=== PATIENT | female | born 1945 | race Two or more races ===

== ENCOUNTER 2017-07-10 14:43 | Inpatient (IN) | payer OTHER ==
[~2017-07-10] VITALS: Ht 162.6 cm; Wt 97.6 kg
[~2017-07-10 14:43] MED LIST: AMLO10TA4 PO; ATOR20TA9 PO; GEMF600T3 PO; HYDR25TA6 PO; LOSA50TA6 PO; METF500T27 PO; OMEP-110 PO
[2017-07-10] MEDS ORDERED: ONDANSETRON ODT 4 MG ONE (15:47)
[2017-07-10] MEDS ORDERED: HYDROmorphone 2 MG/ML, 1ML ONE (15:50)
[2017-07-10] MEDS ORDERED: HYDROmorphone 1 MG/ML, 1ML IM ONE (16:00)
[2017-07-10] MEDS ORDERED: ONDANSETRON ODT 4 MG PO ONE (16:00)
[2017-07-10] MEDS ORDERED: SODIUM CHLORIDE 0.9% 1,000 ML IV ONE (21:09)
[2017-07-10] MEDS ORDERED: CEFTRIAXONE PMX 1GM/50ML 50 ML IVPB ONE (21:30)
[2017-07-10] MEDS ORDERED: SODIUM CHLORIDE 0.9% 1,000ML IVBOLUS ONE (21:30)
[2017-07-10] MEDS ORDERED: SODIUM CHLORIDE FLUSH 10ML SYR IVF ONE (21:30)
[2017-07-10] MEDS ORDERED: AZITHROMYCIN 500 MG in SODIUM CHLORIDE 0.9% 250 ML IVPB ONE (21:30)
[2017-07-10 21:52] LABS: BASOPHILS # (AUTO) 0.03 x10^3/uL (0-0.1); BASOPHILS % (AUTO) 0 % (0-1); EOSINOPHILS # (AUTO) 0.09 x10^3/uL (0-0.4); EOSINOPHILS % (AUTO) 1 % (1-7); LYMPHOCYTES % (AUTO) 15 % (22-44); MD NO; MEAN CORPUSCULAR HEMOGLOBIN 30.6 pg (27.0-34.8); MEAN CORPUSCULAR HGB CONC 33.7 g/dL (32.4-35.8); MEAN CORPUSCULAR VOLUME 90.6 fL (80-100); MEAN PLATELET VOLUME 7.8 fL (7.4-10.4); MONOCYTES # (AUTO) 0.91 x10^3/uL (0.2-0.8); MONOCYTES % (AUTO) 7 % (2-9); NEUTROPHILS # (AUTO) 10.57 x10^3/uL (1.8-6.8); NEUTROPHILS % (AUTO) 77 % (42-75); PLATELET COUNT 372 x10^3/uL (130-400); RED BLOOD COUNT 4.81 x10^6/uL (3.82-5.3); RED CELL DISTRIBUTION WIDTH 13.2 % (9.6-15.2)
[2017-07-10] MEDS ORDERED: CEFTRIAXONE PMX 1GM/50ML 50 ML ONE (21:55)
[2017-07-10 22:01] LABS: INTERNATIONAL NORMALIZED RATIO 1.07 (0.93-1.1); PROTHROMBIN TIME 11.1 Seconds (9.6-11.5)
[2017-07-10 22:06] LABS: ALANINE AMINOTRANSFERASE 30 U/L (12-78); ALBUMIN 3.5 g/dL (3.4-5.0); ANION GAP 9 mmol/L (5-15); CALCIUM 9.3 mg/dL (8.5-10.1); CHLORIDE 99 mmol/L (98-107); CREATININE 1.02 mg/dL (0.55-1.02)
[2017-07-10 22:08] LABS: ALKALINE PHOSPHATASE 83 U/L (45-117); BILIRUBIN,TOTAL 0.3 mg/dL (0.2-1.0); TOTAL PROTEIN 8.7 g/dL (6.4-8.2)
[2017-07-10] MEDS ORDERED: SODIUM CHLORIDE FLUSH 10ML SYR IVF PRN (22:30)
[2017-07-11] MEDS ORDERED: OXYcodone/APAP 5/325MG TABLET PO PRN
[2017-07-11] MEDS ORDERED: BISACODYL 10 MG SUPP PR PRN
[2017-07-11] MEDS ORDERED: ACETAMINOPHEN 325 MG TABLET PO PRN
[2017-07-11] MEDS ORDERED: hydrALAzine 20 MG/ML, 1ML IVPush PRN
[2017-07-11] MEDS ORDERED: DOCUSATE 100 MG CAPSULE PO PRN
[2017-07-11] MEDS ORDERED: ENALAPRILAT 1.25 MG/ML, 2ML IVPush PRN
[2017-07-11] MEDS ORDERED: POLYETHYLENE GLYCOL 17 GM PACKET PO PRN
[2017-07-11] MEDS ORDERED: morphine SULFATE 10 MG/ML, 1ML IVPush PRN
[2017-07-11] MEDS ORDERED: ONDANSETRON 2MG/ML, 2ML IVPush PRN
[2017-07-11 00:15] VITALS: BP 119/73
[2017-07-11 00:37] LABS: MICROSCOPIC NOT IND
[2017-07-11] MEDS: HEPARIN 5,000 UNITS/ML, 1ML SQ SCH ×4 (00:50→23:20)
[2017-07-11 00:55] LABS: CULTURE INDICATED? NO
[2017-07-11 01:35] LABS: RAPID INFLUENZA A Negative (Negative); RAPID INFLUENZA B Negative (Negative)
[2017-07-11 02:04] LABS: FREE T4 (FREE THYROXINE) 1.26 ng/dL (0.76-1.46); TROPONIN I < 0.015 ng/mL (0.000-0.045)
[2017-07-11 02:10] LABS: THYROID STIMULATING HORMONE 0.652 mIU/L (0.358-3.740)
[2017-07-11 02:13] LABS: HEMOGLOBIN A1C 6.7 % (4.2-6.3)
[2017-07-11 04:02] VITALS: BP 119/73
[2017-07-11 06:01] LABS: BASOPHILS # (AUTO) 0.19 x10^3/uL (0-0.1); BASOPHILS % (AUTO) 2 % (0-1); EOSINOPHILS # (AUTO) 0.08 x10^3/uL (0-0.4); EOSINOPHILS % (AUTO) 1 % (1-7); LYMPHOCYTES # (AUTO) 1.71 x10^3/uL (1-3.4); LYMPHOCYTES % (AUTO) 18 % (22-44); MD NO; MEAN CORPUSCULAR HEMOGLOBIN 30.7 pg (27.0-34.8); MEAN CORPUSCULAR HGB CONC 33.4 g/dL (32.4-35.8); MEAN CORPUSCULAR VOLUME 91.8 fL (80-100); MEAN PLATELET VOLUME 7.9 fL (7.4-10.4); MONOCYTES # (AUTO) 0.76 x10^3/uL (0.2-0.8); MONOCYTES % (AUTO) 8 % (2-9); NEUTROPHILS # (AUTO) 6.72 x10^3/uL (1.8-6.8); NEUTROPHILS % (AUTO) 71 % (42-75); PLATELET COUNT 298 x10^3/uL (130-400); RED BLOOD COUNT 4.12 x10^6/uL (3.82-5.3); RED CELL DISTRIBUTION WIDTH 13.2 % (9.6-15.2)
[2017-07-11 06:04] LABS: ALANINE AMINOTRANSFERASE 21 U/L (12-78); ALBUMIN 2.7 g/dL (3.4-5.0); ANION GAP 7 mmol/L (5-15); CALCIUM 8.5 mg/dL (8.5-10.1); CHLORIDE 107 mmol/L (98-107); CREATININE 0.58 mg/dL (0.55-1.02)
[2017-07-11 06:09] LABS: ALKALINE PHOSPHATASE 65 U/L (45-117); BILIRUBIN,TOTAL 0.3 mg/dL (0.2-1.0); TOTAL PROTEIN 6.9 g/dL (6.4-8.2); TROPONIN I < 0.015 ng/mL (0.000-0.045)
[2017-07-11 06:12] LABS: CHOL/HDL RATIO 4.2; LDL/HDL RATIO 2.5 (0.5-3.0)
[2017-07-11 08:00] VITALS: BP 126/78
[2017-07-11] MEDS: ATORVASTATIN 20 MG TABLET PO SCH (08:10)
[2017-07-11] MEDS: AMLODIPINE 5 MG TABLET PO SCH (08:10)
[2017-07-11] MEDS: HYDROCHLOROTHIAZIDE 25 MG TABLET PO SCH (08:10)
[2017-07-11] MEDS: GEMFIBROZIL 600 MG TABLET PO SCH ×2 (08:10→19:52)
[2017-07-11] MEDS: metFORMIN XR 500 MG TAB.ER.24H PO SCH (08:11)
[2017-07-11] MEDS: OMEPRAZOLE 20 MG CAPSULE.DR PO SCH (08:11)
[2017-07-11] MEDS: LOSARTAN 50MG TABLET PO SCH ×2 (08:11→19:52)
[2017-07-11 12:19] LABS: CULTURE INDICATED? NO; MICROSCOPIC NOT IND
[2017-07-11 13:42] VITALS: BP 100/64
[2017-07-11 18:54] VITALS: BP 111/70
[2017-07-11] MEDS: ARTIFICIAL TEARS OPHTH SOLN 15ML EACHEYE PRN (19:51)
[2017-07-11] MEDS: CEFTRIAXONE 2,000 MG in DEXTROSE 5% 50 ML IV SCH (21:59)
[2017-07-11] MEDS ORDERED: CEFTRIAXONE PMX 2GM/50ML 50 ML IV SCH (22:00)
[2017-07-11] MEDS ORDERED: DOXYCYCLINE 100 MG in DEXTROSE 5% 250 ML IV SCH (23:00)
[2017-07-12 00:35] VITALS: BP 128/76
[2017-07-12 05:53] LABS: BASOPHILS # (AUTO) 0.04 x10^3/uL (0-0.1); BASOPHILS % (AUTO) 1 % (0-1); EOSINOPHILS # (AUTO) 0.27 x10^3/uL (0-0.4); EOSINOPHILS % (AUTO) 4 % (1-7); LYMPHOCYTES # (AUTO) 1.72 x10^3/uL (1-3.4); LYMPHOCYTES % (AUTO) 23 % (22-44); MD NO; MEAN CORPUSCULAR HEMOGLOBIN 30.6 pg (27.0-34.8); MEAN CORPUSCULAR HGB CONC 33.4 g/dL (32.4-35.8); MEAN CORPUSCULAR VOLUME 91.7 fL (80-100); MONOCYTES # (AUTO) 0.89 x10^3/uL (0.2-0.8); MONOCYTES % (AUTO) 12 % (2-9); NEUTROPHILS # (AUTO) 4.72 x10^3/uL (1.8-6.8); NEUTROPHILS % (AUTO) 62 % (42-75); PLATELET COUNT 337 x10^3/uL (130-400); RED CELL DISTRIBUTION WIDTH 13.3 % (9.6-15.2)
[2017-07-12 06:01] LABS: ALANINE AMINOTRANSFERASE 17 U/L (12-78); ALBUMIN 2.7 g/dL (3.4-5.0); ANION GAP 7 mmol/L (5-15); CALCIUM 8.8 mg/dL (8.5-10.1); CHLORIDE 107 mmol/L (98-107)
[2017-07-12 06:04] LABS: ALKALINE PHOSPHATASE 64 U/L (45-117); BILIRUBIN,TOTAL 0.3 mg/dL (0.2-1.0); CREATININE 0.57 mg/dL (0.55-1.02); TOTAL PROTEIN 7.1 g/dL (6.4-8.2)
[2017-07-12 07:44] VITALS: BP 116/70
[2017-07-12] MEDS: HYDROCHLOROTHIAZIDE 25 MG TABLET PO SCH (07:45)
[2017-07-12] MEDS: metFORMIN XR 500 MG TAB.ER.24H PO SCH (07:45)
[2017-07-12] MEDS: OMEPRAZOLE 20 MG CAPSULE.DR PO SCH (07:45)
[2017-07-12] MEDS: GEMFIBROZIL 600 MG TABLET PO SCH ×2 (07:45→23:03)
[2017-07-12] MEDS: AMLODIPINE 5 MG TABLET PO SCH (07:46)
[2017-07-12] MEDS: LOSARTAN 50MG TABLET PO SCH ×2 (07:46→23:03)
[2017-07-12] MEDS: HEPARIN 5,000 UNITS/ML, 1ML SQ SCH ×3 (07:46→23:04)
[2017-07-12] MEDS: ATORVASTATIN 20 MG TABLET PO SCH (07:46)
[2017-07-12] MEDS: ARTIFICIAL TEARS OPHTH SOLN 15ML EACHEYE PRN ×2 (07:56→18:34)
[2017-07-12] MEDS: DOXYCYCLINE 100MG TABLET PO SCH ×2 (10:49→23:03)
[2017-07-12 13:53] VITALS: BP 114/71
[2017-07-12 13:59] VITALS: BP 139/46
[2017-07-12] MEDS: CEFTRIAXONE 2,000 MG in DEXTROSE 5% 50 ML IV SCH (23:03)
[2017-07-12 23:05] VITALS: BP 122/79
[2017-07-13 02:53] VITALS: BP 125/79
[2017-07-13 07:30] VITALS: BP 110/75
[2017-07-13] MEDS: HEPARIN 5,000 UNITS/ML, 1ML SQ SCH (09:31)
[2017-07-13] MEDS: GEMFIBROZIL 600 MG TABLET PO SCH (09:32)
[2017-07-13] MEDS: DOXYCYCLINE 100MG TABLET PO SCH (09:32)
[2017-07-13] MEDS: OMEPRAZOLE 20 MG CAPSULE.DR PO SCH (09:32)
[2017-07-13] MEDS: AMLODIPINE 5 MG TABLET PO SCH (09:32)
[2017-07-13] MEDS: ATORVASTATIN 20 MG TABLET PO SCH (09:32)
[2017-07-13] MEDS: metFORMIN XR 500 MG TAB.ER.24H PO SCH (09:32)
[2017-07-13] MEDS: HYDROCHLOROTHIAZIDE 25 MG TABLET PO SCH (09:32)
[2017-07-13] MEDS: LOSARTAN 50MG TABLET PO SCH (09:32)
[2017-07-13] MEDS ORDERED: CEFD300C37 PO (13:52)
[2017-07-13] MEDS ORDERED: DOXY100T10 PO (13:52)
[2017-07-13] MEDS ORDERED: ACET325T14 PO (13:53)
[2017-07-13 14:09] VITALS: BP 107/66
== END 2017-07-13 16:10 | disposition home or self-care (01) | DRG 562 ==
LOC: ED 16:35 → 3NE 23:59
PROVIDERS: ADMIT Internal Medicine; ATTEND Internal Medicine
DX: S42.292A Other displaced fracture of upper end of left humerus, initial encounter for closed fracture (principal); J96.01 Acute respiratory failure with hypoxia; J15.9 Unspecified bacterial pneumonia; E87.2 Acidosis; W01.0XXA Fall on same level from slipping, tripping and stumbling without subsequent striking against object, initial encounter; E11.9 Type 2 diabetes mellitus without complications; E78.5 Hyperlipidemia, unspecified; I10 Essential (primary) hypertension; K21.9 Gastro-esophageal reflux disease without esophagitis; Y93.89 Activity, other specified; Y92.89 Other specified places as the place of occurrence of the external cause; Y99.8 Other external cause status
CPT/HCPCS: 36415; 71045; 80053; 80061; 81003; 83036; 83605; 83735; 84145; 84439; 84443; 84484; 85025; 85610; 85730; 87040; 87070; 87205; 87400; 93005; 93306; J0456; J0696; J1170; J1644; J7060; Q0162; J7030; J7050

== ENCOUNTER 2020-07-25 05:37 | Inpatient (IN) | payer OTHER ==
[2020-07-22 12:24] LABS: BASOPHILS % (AUTO) 1 % (0-1); EOSINOPHILS % (AUTO) 2 % (1-7); LYMPHOCYTES % (AUTO) 31 % (22-44); MD NO; MEAN CORPUSCULAR HEMOGLOBIN 30.3 pg (27.0-34.8); MEAN CORPUSCULAR HGB CONC 33.7 g/dL (32.4-35.8); MEAN PLATELET VOLUME 8.5 fL (7.4-10.4); MONOCYTES % (AUTO) 10 % (2-9); NEUTROPHILS % (AUTO) 56 % (42-75); PLATELET COUNT 280 x10^3/uL (130-400); RED BLOOD COUNT 4.72 x10^6/uL (3.82-5.3); RED CELL DISTRIBUTION WIDTH 14.1 % (9.6-15.2)
[2020-07-22 12:27] LABS: INTERNATIONAL NORMALIZED RATIO 1.04 (0.93-1.1)
[2020-07-22 12:32] LABS: CHLORIDE 107 mmol/L (98-107)
[2020-07-22 12:49] LABS: ALANINE AMINOTRANSFERASE 26 U/L (12-78); ALBUMIN 3.9 g/dL (3.4-5.0); ALKALINE PHOSPHATASE 73 U/L (45-117); ANION GAP 6 mmol/L (5-15); BILIRUBIN,TOTAL 0.5 mg/dL (0.2-1.0); CREATININE 0.83 mg/dL (0.55-1.02); TOTAL PROTEIN 8.1 g/dL (6.4-8.2)
[~2020-07-25] VITALS: Ht 162.6 cm; Wt 90.2 kg
[~2020-07-25 05:37] MED LIST changes: +ACET325T14 PO; +ASPI81TA45 PO; +ATOR20TA37 PO; -ATOR20TA9 PO; +CEFD300C37 PO; +DOXY100T23 PO; +GEMF-31 PO; -GEMF600T3 PO; +LOSA50TA14 PO; -LOSA50TA6 PO; +OMEG-76 PO
[2020-07-25] MEDS ORDERED: CHLORHEXIDINE 15 ML UDC MM ONE (06:30)
[2020-07-25] MEDS ORDERED: LACTATED RINGERS 1,000 ML IV SCH (06:30)
[2020-07-25 06:32] VITALS: BP 116/78
[2020-07-25] MEDS ORDERED: CEFOTETAN PMX 2GM/50ML 50 ML IV ONE (07:00)
[2020-07-25] MEDS ORDERED: PROPOFOL 10 MG/ML, 20ML ONE (07:15)
[2020-07-25] MEDS ORDERED: FENTANYL PF 250 MCG/5ML ONE (07:15)
[2020-07-25] MEDS ORDERED: ROCURONIUM 10MG/ML,5ML ONE ×2 (07:15→09:23)
[2020-07-25] MEDS ORDERED: LIDOCAINE-MPF 2% ,5ML ONE (07:16)
[2020-07-25] MEDS ORDERED: EPHEDRINE 50 MG/ML, 1ML ONE (07:22)
[2020-07-25] MEDS ORDERED: CALCIUM CHLORIDE 10%, 10ML SYR ONE (07:38)
[2020-07-25] MEDS ORDERED: DEXAMETHASONE 4 MG/ML, 5ML ONE ×2 (08:35)
[2020-07-25] MEDS ORDERED: ALBUMIN HUMAN 5% 500 ML ONE ×2 (09:26→10:32)
[2020-07-25] MEDS ORDERED: PHENYLEPHRINE 10 MG/ML ONE ×2 (11:08)
[2020-07-25] MEDS ORDERED: ACETAMINOPHEN 325 MG TABLET PO PRN (13:00)
[2020-07-25] MEDS ORDERED: ONDANSETRON 2MG/ML, 2ML IVPush PRN ×2 (13:00→14:00)
[2020-07-25] MEDS ORDERED: EPHEDRINE 50 MG/ML, 1ML IVPush PRN (13:00)
[2020-07-25] MEDS ORDERED: FENTANYL PF 100 MCG/2ML ONE ×3 (13:07→14:16)
[2020-07-25] MEDS ORDERED: SUGAMMADEX 200 MG/2 ML IVPush ONE (13:08)
[2020-07-25] MEDS ORDERED: ONDANSETRON 2MG/ML, 2ML ONE (13:11)
[2020-07-25] MEDS ORDERED: HYDROmorphone 1 MG/ML, 1ML INJ ONE ×2 (14:00→14:16)
[2020-07-25] MEDS: FENTANYL PF 100 MCG/2ML IV PRN ×2 (14:01→14:06)
[2020-07-25] MEDS: HYDROmorphone 1 MG/ML, 1ML INJ IVPush PRN ×3 (14:11→14:29)
[2020-07-25] MEDS ORDERED: PROCHLORPERAZINE 5 MG/ML, 2ML IVPush PRN (14:30)
[2020-07-25] MEDS ORDERED: LABETALOL 5MG/ML, 20ML IVPush PRN (14:30)
[2020-07-25] MEDS ORDERED: DIPHENHYDRAMINE 50 MG/ML, 1ML IVPush PRN (14:30)
[2020-07-25 16:19] LABS: MEAN CORPUSCULAR HEMOGLOBIN 30.4 pg (27.0-34.8); MEAN CORPUSCULAR HGB CONC 33.2 g/dL (32.4-35.8); MEAN PLATELET VOLUME 8.4 fL (7.4-10.4); PLATELET COUNT 160 x10^3/uL (130-400); RED BLOOD COUNT 4.55 x10^6/uL (3.82-5.3); RED CELL DISTRIBUTION WIDTH 14.7 % (9.6-15.2)
[2020-07-25 17:16] LABS: MD YES
[2020-07-25 17:19] LABS: BAND#(MANUAL) 5.36 x10^3/uL; BANDS%(MANUAL) 38 % (0-7); LYMPH#(MANUAL) 0.28 x10^3/uL (1-3.4); LYMPHS% (MANUAL) 2 % (22-44); MONOS#(MANUAL) 0.85 x10^3/uL (0.3-2.7); MONOS% (MANUAL) 6 % (2-9); SEG#(MANUAL) 7.61 x10^3/uL (1.8-6.8); SEGS% (MANUAL) 54 % (42-75)
[2020-07-25 17:20] LABS: <RBC MORPHOLOGY> NORMAL
[2020-07-25 17:21] LABS: <PLATELET ESTIMATE> ADEQUATE; <PLT MORPHOLOGY> NORMAL PLT MORPH
[2020-07-25] MEDS: INSULIN REGULAR 100 UNITS/ML, 3ML VIAL SQ-INSULIN SCH ×2 (17:28→21:00)
[2020-07-25] MEDS: POTASSIUM CHLORIDE 20 MEQ in SODIUM CHLORIDE 0.45% 1,000 ML IV SCH (17:51)
[2020-07-26] MEDS: POTASSIUM CHLORIDE 20 MEQ in SODIUM CHLORIDE 0.45% 1,000 ML IV SCH ×3 (02:06→18:33)
[2020-07-26] MEDS: INSULIN REGULAR 100 UNITS/ML, 3ML VIAL SQ-INSULIN SCH ×4 (03:00→20:17)
[2020-07-26 04:30] LABS: BASOPHILS % (AUTO) 0 % (0-1); EOSINOPHILS % (AUTO) 0 % (1-7); LYMPHOCYTES % (AUTO) 6 % (22-44); MEAN CORPUSCULAR HEMOGLOBIN 30.4 pg (27.0-34.8); MEAN CORPUSCULAR HGB CONC 33.6 g/dL (32.4-35.8); MEAN PLATELET VOLUME 8.7 fL (7.4-10.4); MONOCYTES % (AUTO) 7 % (2-9); NEUTROPHILS % (AUTO) 87 % (42-75); PLATELET COUNT 146 x10^3/uL (130-400); RED BLOOD COUNT 4.22 x10^6/uL (3.82-5.3); RED CELL DISTRIBUTION WIDTH 14.4 % (9.6-15.2)
[2020-07-26 04:33] LABS: MD NO
[2020-07-26 04:42] LABS: ANION GAP 2 mmol/L (5-15); CALCIUM 8.1 mg/dL (8.5-10.1); CHLORIDE 112 mmol/L (98-107)
[2020-07-26] MEDS ORDERED: MAGNESIUM SULFATE/D5W 100 ML IVPB ONE (08:00)
[2020-07-26] MEDS ORDERED: SODIUM CHLORIDE 0.9% 1,000 ML IV ONE (08:00)
[2020-07-26 09:38] VITALS: BP 111/37
[2020-07-26 12:45] VITALS: BP 98/47
[2020-07-26 16:45] VITALS: BP 102/52
[2020-07-26 18:28] VITALS: BP 105/67
[2020-07-27 00:18] VITALS: BP 110/70
[2020-07-27] MEDS: INSULIN REGULAR 100 UNITS/ML, 3ML VIAL SQ-INSULIN SCH ×4 (03:15→21:00)
[2020-07-27] MEDS ORDERED: PROCHLORPERAZINE 5 MG/ML, 2ML IVPush PRN (03:30)
[2020-07-27] MEDS ORDERED: LABETALOL 5MG/ML, 20ML IVPush PRN (03:30)
[2020-07-27] MEDS: POTASSIUM CHLORIDE 20 MEQ in SODIUM CHLORIDE 0.45% 1,000 ML IV SCH ×3 (03:31→21:03)
[2020-07-27 04:56] LABS: BASOPHILS % (AUTO) 0 % (0-1); EOSINOPHILS % (AUTO) 0 % (1-7); LYMPHOCYTES % (AUTO) 9 % (22-44); MEAN CORPUSCULAR HEMOGLOBIN 30.9 pg (27.0-34.8); MEAN CORPUSCULAR HGB CONC 33.9 g/dL (32.4-35.8); MEAN PLATELET VOLUME 8.6 fL (7.4-10.4); MONOCYTES % (AUTO) 7 % (2-9); NEUTROPHILS % (AUTO) 84 % (42-75); PLATELET COUNT 112 x10^3/uL (130-400); RED BLOOD COUNT 3.37 x10^6/uL (3.82-5.3); RED CELL DISTRIBUTION WIDTH 14.7 % (9.6-15.2)
[2020-07-27 05:02] LABS: MD NO
[2020-07-27 05:04] LABS: ANION GAP 6 mmol/L (5-15); CHLORIDE 111 mmol/L (98-107); CREATININE 0.51 mg/dL (0.55-1.02)
[2020-07-27 06:07] VITALS: BP 112/71
[2020-07-27] MEDS ORDERED: KETOROLAC 30 MG/1 ML IVPush PRN (13:00)
[2020-07-27] MEDS ORDERED: GLUCAGON 1 MG IM PRN (17:00)
[2020-07-27] MEDS ORDERED: DEXTROSE 50%, 50ML SYRINGE IVPush PRN (17:00)
[2020-07-27] MEDS ORDERED: DEXTROSE 4 GM TAB.CHEW PO PRN (17:00)
[2020-07-27 19:59] VITALS: BP 108/74
[2020-07-27] MEDS: FAMOTIDINE 20 MG/2 ML IVPush SCH (21:00)
[2020-07-27] MEDS: SODIUM CHLORIDE FLUSH 10ML SYR IVF SCH (21:03)
[2020-07-28 01:21] VITALS: BP 110/51
[2020-07-28] MEDS: INSULIN REGULAR 100 UNITS/ML, 3ML VIAL SQ-INSULIN SCH ×4 (03:00→20:20)
[2020-07-28] MEDS: POTASSIUM CHLORIDE 20 MEQ in SODIUM CHLORIDE 0.45% 1,000 ML IV SCH ×3 (04:42→23:01)
[2020-07-28 05:15] LABS: BASOPHILS % (AUTO) 0 % (0-1); EOSINOPHILS % (AUTO) 1 % (1-7); LYMPHOCYTES % (AUTO) 9 % (22-44); MEAN CORPUSCULAR HEMOGLOBIN 30.6 pg (27.0-34.8); MEAN CORPUSCULAR HGB CONC 33.3 g/dL (32.4-35.8); MEAN PLATELET VOLUME 8.6 fL (7.4-10.4); MONOCYTES % (AUTO) 6 % (2-9); NEUTROPHILS % (AUTO) 84 % (42-75); PLATELET COUNT 118 x10^3/uL (130-400); RED BLOOD COUNT 3.22 x10^6/uL (3.82-5.3); RED CELL DISTRIBUTION WIDTH 14.5 % (9.6-15.2)
[2020-07-28 05:18] LABS: MD NO
[2020-07-28 05:32] LABS: ANION GAP 6 mmol/L (5-15); CHLORIDE 110 mmol/L (98-107)
[2020-07-28 05:47] LABS: CREATININE 0.47 mg/dL (0.55-1.02)
[2020-07-28 08:00] VITALS: BP 105/59
[2020-07-28] MEDS: SODIUM CHLORIDE FLUSH 10ML SYR IVF SCH ×2 (10:13→20:20)
[2020-07-28 19:43] VITALS: BP 108/63
[2020-07-28] MEDS: FAMOTIDINE 20 MG/2 ML IVPush SCH (20:20)
[2020-07-29 00:10] VITALS: BP 111/64
[2020-07-29] MEDS: INSULIN REGULAR 100 UNITS/ML, 3ML VIAL SQ-INSULIN SCH ×4 (03:27→21:18)
[2020-07-29] MEDS: POTASSIUM CHLORIDE 20 MEQ in SODIUM CHLORIDE 0.45% 1,000 ML IV SCH ×2 (06:29→16:43)
[2020-07-29 06:55] VITALS: BP 126/77
[2020-07-29 07:37] LABS: BASOPHILS % (AUTO) 0 % (0-1); EOSINOPHILS % (AUTO) 1 % (1-7); LYMPHOCYTES % (AUTO) 6 % (22-44); MEAN CORPUSCULAR HEMOGLOBIN 30.6 pg (27.0-34.8); MEAN CORPUSCULAR HGB CONC 33.5 g/dL (32.4-35.8); MEAN PLATELET VOLUME 7.6 fL (7.4-10.4); MONOCYTES % (AUTO) 9 % (2-9); NEUTROPHILS % (AUTO) 83 % (42-75); PLATELET COUNT 171 x10^3/uL (130-400); RED BLOOD COUNT 3.31 x10^6/uL (3.82-5.3); RED CELL DISTRIBUTION WIDTH 14.6 % (9.6-15.2)
[2020-07-29 07:40] LABS: MD NO
[2020-07-29] MEDS: SODIUM CHLORIDE FLUSH 10ML SYR IVF SCH ×2 (09:45→21:18)
[2020-07-29 12:46] VITALS: BP 125/75
[2020-07-29 18:20] VITALS: BP 124/56
[2020-07-29] MEDS: FAMOTIDINE 20 MG/2 ML IVPush SCH (21:17)
[2020-07-30 00:18] VITALS: BP 135/67
[2020-07-30] MEDS: POTASSIUM CHLORIDE 20 MEQ in SODIUM CHLORIDE 0.45% 1,000 ML IV SCH ×3 (00:39→16:33)
[2020-07-30] MEDS: INSULIN REGULAR 100 UNITS/ML, 3ML VIAL SQ-INSULIN SCH ×4 (02:47→20:27)
[2020-07-30 05:22] LABS: BASOPHILS % (AUTO) 0 % (0-1); EOSINOPHILS % (AUTO) 2 % (1-7); LYMPHOCYTES % (AUTO) 8 % (22-44); MEAN CORPUSCULAR HEMOGLOBIN 31.1 pg (27.0-34.8); MEAN CORPUSCULAR HGB CONC 34.1 g/dL (32.4-35.8); MEAN PLATELET VOLUME 7.3 fL (7.4-10.4); MONOCYTES % (AUTO) 11 % (2-9); NEUTROPHILS % (AUTO) 80 % (42-75); PLATELET COUNT 183 x10^3/uL (130-400); RED BLOOD COUNT 3.27 x10^6/uL (3.82-5.3); RED CELL DISTRIBUTION WIDTH 14.2 % (9.6-15.2)
[2020-07-30 05:28] LABS: MD NO
[2020-07-30 05:31] LABS: ANION GAP 10 mmol/L (5-15); CALCIUM 7.9 mg/dL (8.5-10.1); CHLORIDE 109 mmol/L (98-107); CREATININE 0.39 mg/dL (0.55-1.02)
[2020-07-30 08:17] VITALS: BP 100/67
[2020-07-30] MEDS: SODIUM CHLORIDE FLUSH 10ML SYR IVF SCH ×2 (08:43→20:24)
[2020-07-30 13:29] VITALS: BP 127/78
[2020-07-30] MEDS: ACETAMINOPHEN 325 MG TABLET PO PRN ×2 (14:34→20:23)
[2020-07-30 18:35] VITALS: BP 128/74
[2020-07-30] MEDS: FAMOTIDINE 20 MG/2 ML IVPush SCH (20:23)
[2020-07-31 00:26] VITALS: BP 130/78
[2020-07-31] MEDS: POTASSIUM CHLORIDE 20 MEQ in SODIUM CHLORIDE 0.45% 1,000 ML IV SCH ×2 (00:34→09:55)
[2020-07-31] MEDS: ACETAMINOPHEN 325 MG TABLET PO PRN ×2 (05:26→18:21)
[2020-07-31] MEDS: INSULIN REGULAR 100 UNITS/ML, 3ML VIAL SQ-INSULIN SCH ×4 (07:00→20:07)
[2020-07-31 08:38] VITALS: BP 115/72
[2020-07-31] MEDS: SODIUM CHLORIDE FLUSH 10ML SYR IVF SCH ×2 (09:55→20:06)
[2020-07-31 14:31] VITALS: BP 138/79
[2020-07-31 18:44] VITALS: BP 129/77
[2020-07-31] MEDS: FAMOTIDINE 20 MG/2 ML IVPush SCH (20:06)
[2020-08-01] MEDS: ACETAMINOPHEN 325 MG TABLET PO PRN (01:12)
[2020-08-01 01:47] VITALS: BP 113/73
[2020-08-01] MEDS: OXYcodone/APAP 5/325MG TABLET PO PRN (03:00)
[2020-08-01 04:49] LABS: BASOPHILS % (AUTO) 0 % (0-1); EOSINOPHILS % (AUTO) 1 % (1-7); LYMPHOCYTES % (AUTO) 9 % (22-44); MEAN CORPUSCULAR HEMOGLOBIN 30.4 pg (27.0-34.8); MEAN CORPUSCULAR HGB CONC 33.8 g/dL (32.4-35.8); MEAN PLATELET VOLUME 7.5 fL (7.4-10.4); MONOCYTES % (AUTO) 10 % (2-9); NEUTROPHILS % (AUTO) 80 % (42-75); PLATELET COUNT 217 x10^3/uL (130-400); RED BLOOD COUNT 3.37 x10^6/uL (3.82-5.3); RED CELL DISTRIBUTION WIDTH 14.5 % (9.6-15.2)
[2020-08-01 04:57] LABS: MD NO
[2020-08-01 04:58] LABS: ANION GAP 6 mmol/L (5-15); CALCIUM 8.2 mg/dL (8.5-10.1); CHLORIDE 110 mmol/L (98-107); CREATININE 0.41 mg/dL (0.55-1.02)
[2020-08-01] MEDS ORDERED: POTASSIUM CHLORIDE 20 MEQ TAB.ER.PRT PO ONE ×2 (06:00)
[2020-08-01 06:37] VITALS: BP 120/71
[2020-08-01] MEDS: INSULIN REGULAR 100 UNITS/ML, 3ML VIAL SQ-INSULIN SCH ×4 (07:45→20:06)
[2020-08-01] MEDS: SODIUM CHLORIDE FLUSH 10ML SYR IVF SCH ×2 (08:17→20:06)
[2020-08-01 12:05] VITALS: BP 111/74
[2020-08-01 19:44] VITALS: BP 122/75
[2020-08-01] MEDS ORDERED: FAMOTIDINE 40 MG TABLET ONE (20:00)
[2020-08-01] MEDS: FAMOTIDINE 20 MG TABLET PO SCH (20:06)
[2020-08-02 00:08] VITALS: BP 117/68
[2020-08-02] MEDS: OXYcodone/APAP 5/325MG TABLET PO PRN (04:09)
[2020-08-02 05:27] LABS: CALCIUM 8.3 mg/dL (8.5-10.1); CHLORIDE 110 mmol/L (98-107)
[2020-08-02 05:30] LABS: ANION GAP 8 mmol/L (5-15); CREATININE 0.45 mg/dL (0.55-1.02)
[2020-08-02 06:50] VITALS: BP 105/68
[2020-08-02] MEDS: INSULIN REGULAR 100 UNITS/ML, 3ML VIAL SQ-INSULIN SCH ×4 (07:00→21:00)
[2020-08-02] MEDS: ACETAMINOPHEN 325 MG TABLET PO PRN (09:12)
[2020-08-02] MEDS: SODIUM CHLORIDE FLUSH 10ML SYR IVF SCH ×2 (09:15→21:03)
[2020-08-02] MEDS: KETOROLAC 30 MG/1 ML IVPush PRN ×2 (11:13→17:34)
[2020-08-02 12:33] VITALS: BP 104/44
[2020-08-02 18:35] VITALS: BP 122/63
[2020-08-02] MEDS ORDERED: FAMOTIDINE 40 MG TABLET ONE (20:58)
[2020-08-02] MEDS: FAMOTIDINE 20 MG TABLET PO SCH (21:00)
[2020-08-03 00:23] VITALS: BP 129/75
[2020-08-03 07:03] VITALS: BP 115/72
[2020-08-03] MEDS: INSULIN REGULAR 100 UNITS/ML, 3ML VIAL SQ-INSULIN SCH ×3 (07:22→16:00)
[2020-08-03] MEDS: SODIUM CHLORIDE FLUSH 10ML SYR IVF SCH (10:04)
[2020-08-03] MEDS: KETOROLAC 30 MG/1 ML IVPush PRN (10:04)
[2020-08-03 12:42] VITALS: BP 101/66
== END 2020-08-03 18:03 | disposition home or self-care (01) | DRG 740 ==
LOC: ORIP 05:37 → CSU 15:13 → CCU 23:27 → 4NW 07-26 12:36
PROVIDERS: ADMIT Obstetrics & Gynecology; ATTEND Obstetrics & Gynecology
PROC: 0DTJ0ZZ Resection of Appendix, Open Approach (ICD-10-PCS; 2020-07-25)
PROC: 0DBU0ZZ Excision of Omentum, Open Approach (ICD-10-PCS; 2020-07-25)
PROC: 0UT20ZZ Resection of Bilateral Ovaries, Open Approach (ICD-10-PCS; 2020-07-25)
PROC: 0UT70ZZ Resection of Bilateral Fallopian Tubes, Open Approach (ICD-10-PCS; 2020-07-25)
PROC: 30233N1 Transfusion of Nonautologous Red Blood Cells into Peripheral Vein, Percutaneous Approach (ICD-10-PCS; 2020-07-25)
PROC: 0UT90ZZ Resection of Uterus, Open Approach (ICD-10-PCS; principal; 2020-07-25 07:30)
DX: C54.1 Malignant neoplasm of endometrium (principal); C78.6 Secondary malignant neoplasm of retroperitoneum and peritoneum; N17.9 Acute kidney failure, unspecified; D62 Acute posthemorrhagic anemia; I10 Essential (primary) hypertension; N95.0 Postmenopausal bleeding; E11.9 Type 2 diabetes mellitus without complications; D72.829 Elevated white blood cell count, unspecified; E87.6 Hypokalemia; D25.9 Leiomyoma of uterus, unspecified; K66.0 Peritoneal adhesions (postprocedural) (postinfection); Z79.84 Long term (current) use of oral hypoglycemic drugs; Z79.899 Other long term (current) drug therapy
CPT/HCPCS: 36415; J3490; 71046; 80048; 80053; 82330; 82803; 82947; 82962; 83735; 84132; 84295; 85014; 85018; 85025; 85610; 85730; 86850; 86900; 86923; 87081; 88304; 88305; 88307; 88309; 93005; C1729; G0378; J1100; J1170; J1815; J1885; J2270; J2405; J2704; J3010; J3480; P9045; C1760; C1765; C1769; J2370; J7030; J7120; P9016